=== PATIENT | male | born 1960 | race Caucasian/White ===

== ENCOUNTER 2023-07-10 15:45 | Outpatient (CLI) | payer OTHER, SELFPAY ==
--- NOTE | ~2023-07-10 | XR_ITS ---
XR abdomen/kub 1V 07/10/2023 16:06 Indication: Kidney stones Procedure: KUB Comparison: No prior studies for comparison. Findings: There are peripherally calcified stones in the right upper abdomen at the level of the supe rior pole of the right kidney, suspicious for gallstones. Bowel pattern nonobstructive. Moderate colo manuel fecal loading. Mild osteoarthritis of the hips. No acute osseous abnormality. There are coarse ca lcifications of the prostate gland. No definite renal stones are seen, although the kidneys are obscu red by bowel content. Impression: 1: Probable gallstones. Consider correlation with ultrasound or CT. Reviewed, dictated and finalized at location B. Impression: 1: Probable gallstones. Consider correlation with ultrasound or CT.
== END 2023-07-10 15:46 | disposition home or self-care (01) ==
LOC: ANHIMG 15:51
PROVIDERS: PCP Internal Medicine; Visit Provider Nurse Practitioner Adult Health
DX: N20.0 Calculus of kidney (principal)
CPT/HCPCS: 74018

== ENCOUNTER 2023-07-20 12:31 | Outpatient (CLI) | payer OTHER, SELFPAY ==
--- NOTE | 2023-07-20 12:44 | ECG_ITS ---
Measurements Intervals [place] Rate: 65 P: 43 MI: 155 QRS: 26 QRSD: 77 T: 38 QT: 401 QTc: 419 Interpretive Statements SINUS RHYTHM NO PREVIOUS ECG AVAILABLE FOR COMPARISON Electronically Signed On 07-20-2023 14:33:19 CDT by Brit Jorgensen M.D.
== END 2023-07-20 12:32 | disposition home or self-care (01) ==
PROVIDERS: PCP Internal Medicine; Visit Provider Urology
DX: Z01.810 Encounter for preprocedural cardiovascular examination (principal); I10 Essential (primary) hypertension
CPT/HCPCS: 93005

== ENCOUNTER 2023-07-24 00:29 | Day surgery (SDC) | payer OTHER, SELFPAY ==
[2023-07-20 10:46] VITALS: BMI 40.3
--- NOTE | 2023-07-20 10:59 | PC.NURSE ---
Report to the Outpatient Waiting Room, entrance under the green pavilion located off [facility], at time _0630_ on date _[id number]_. Planned Procedure Time: _0830_. Time changes happen often and if your time is changed the preop area will call you the afternoon before. - You and your visitor will be asked to self-screen and do not enter if you have any COVID symptoms. - A mask is optional within the hospital at this time. Patients may have clear liquids (water, carbonated beverages, clear teas, apple juice) until 3 hours prior to surgery with a maximum of 20 ounces. - No food from midnight until time of surgery Take the following medications with a SIP of water the morning of surgery: __Metoprolol and Venlafaxine DO NOT STOP ANY OF YOUR OTHER PRESCRIPTION MEDICATIONS PRIOR TO SURGERY ?EXCEPT THE FOLLOWING Medications to discontinue per physician _Rybelsus stop now, fish oil and all vitamins Date to take last oxxy___[id number] Please no make-up, nail german, hairspray, perfume, deodorant, or body powder the day of surgery. No jewelry (including any body piercings) or valuables the day of surgery, leave them at home. Please take a shower or bath the night before, or the morning of, surgery with an antibacterial soap. Wear comfortable, loose fitting clothing. - Jewelry must be removed prior to entering the operating room. Rings and piercings that are not removed may be cut off. - The hospital will not accept responsibility for valuables. - Please leave all valuables, including medications, at home the day of surgery. If you are going home after surgery, a licensed sanitation truck driver must drive you home. - NO public transportation without another adult if you receive anesthesia. - We recommend that an adult stay with you for 24 hours following discharge. - We also recommend that you do not drive, make important decision, drink alcoholic beverages, or take any drugs that were not prescribed by your health care provider for at least 24 hours after your discharge time. Follow any additional instructions given to you from your surgeon. If you or anyone in your household have experienced Covid symptoms in the past week, please notify your surgeon or the nurse liaison at the phone number below for possible testing. Telephone instructions given to _Patient__and asked if any additional questions and then verbalized understanding. Patient advised to call surgeon office or pre surgery nurse liaison [phone] if any additional questions.
[2023-07-24] VITALS (14 sets, daily range): BP systolic 115–135; BP diastolic 70–97; PULSE 54–66; RESP 13–20; TEMP 36.3–36.7; O2SAT 97–98
--- NOTE | ~2023-07-24 | XR_ITS ---
EXAMINATION: XR retrograde pyelo w/stent LT DATE: 07/24/2023 08:37 INDICATION: Left ureteral stone. TECHNIQUE: 7 intraoperative fluoroscopic views of the abdomen and pelvis were obtained. I was not pre sent. Fluoroscopy exposure time was 69 seconds. COMPARISON: Abdomen radiograph 07/10/2023 FINDINGS: The left-sided retrograde pyelogram is unremarkable. The final images demonstrate a left in ternal ureteral stent in expected position. IMPRESSION: 1. Left internal ureteral stent in expected position. Reviewed, dictated and finalized at location A.
--- NOTE | 2023-07-24 06:39 | WPDANESEPPF ---
Anes - Initial Pre Proc Eval Procedure: Operation Date: 07/24/23 07:30 Proposed Procedures p Cystoscopy, Left Ureteroscopy, Left Retrograde Pyelogram, Possible Left Stone Extraction, Possible Left Stent Placement, Possible Holmium Laser - Marco Mckeon MD Date/Time: 07/24/23 06:39 Surgeon: Marco Mckeon MD Pre Op Diagnosis: left ureteral stones Patient Data Age: 62 Gender: M Height: 1.85 m Weight: 138.6 kg Allergies Allergy/AdvReac Type Severity Reaction Status Date / Time Gcgudko-YBR-GnS Reductase Allergy Intermediate Muscle Pain Verified 07/24/23 06:31 Inhibitor Home Medications Medication Instructions Recorded Confirmed Type armodafinil 250 mg tablet 125 mg PO DAILY 07/20/23 07/20/23 History cefdinir 300 mg capsule 300 mg PO BID 07/20/23 07/20/23 History cholecalciferol (vitamin D3) 125 125 mcg PO DAILY 07/20/23 07/20/23 History mcg (5,000 unit) tablet (Vitamin D3) gabapentin 300 mg capsule 300 mg PO HS 07/20/23 07/20/23 History glucosamine sulf dipot 1 cap PO DAILY 07/20/23 07/20/23 History chlr,msm,chond 550 mg-C 30 mg-jorge 1 mg capsule (Glucosamine Chondroitin) losartan 50 mg tablet 75 mg PO DAILY 07/20/23 07/20/23 History metoprolol succinate 25 mg 25 mg PO DAILY 07/20/23 07/20/23 History tablet,extended release 24 hr multivitamin 1 tablet PO DAILY 07/20/23 07/20/23 History omega 9-gol-xtn-fish oil 300 1 cap PO DAILY 07/20/23 07/20/23 History mg-1,000 mg capsule (Fish Oil) semaglutide 14 mg tablet (Rybelsus) 14 mg PO DAILY 07/20/23 07/20/23 History tamsulosin 0.4 mg capsule 0.4 mg PO DAILY 07/20/23 07/20/23 History tumeric 100 mg-evette 150 mg-olive 1 cap PO DAILY 07/20/23 07/20/23 History 50 mg-oreg 150 mg-caprylate capsule venlafaxine 225 mg tablet,extended 225 mg PO DAILY 07/20/23 07/20/23 History release 24 hr vit A 7,160 unit-vit C 113 mg-vit 1 tablet PO DAILY 07/20/23 07/20/23 History E 100 dnug-rnez-pvyfxf tablet Patient hx anesthesia problems: 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 [facility] Past Medical History Medical History (Updated 07/24/23 @ 06:40 by Geoff Chandra MD) HTN (hypertension) Hypertension Morbid obesity PAUL (obstructive sleep apnea) Palpitations Social History Social History Smoking status: Never smoker Alcohol intake: current Drinks per week: 1 Living arrangements: with family Spiritual care concerns: No Anes - Eval Final PreProcedure Day of Procedure 07/24/23 06:39 Patient weight: morbidly obese Heart: regular rate and rhythm Lungs: clear to auscultation Airway: Mallampati scale class 1 Neurological: alert and oriented Last oral intake: >/= 8 hours ASA classification: III Emergent: no Anesthetic plan: proceed Anesthesia type and monitoring: general GIVS and standard monitoring Results Review: All pre-operative results and documents have been reviewed as part of the pre-operative evaluation. Informed Consent: The patient's anesthetic plan and its attendant risks and benefits were discussed with the patient/family/POA. Questions were solicited and answers provided to the satisfaction of the patient/family/POA.
[2023-07-24] MEDS: LACTATED RINGERS 1,000 ML 30 ML IV CONT ×2 (07:00→10:21)
--- NOTE | 2023-07-24 07:21 | WPDHPUPDATE1 ---
History and Physical Update Update Date/Time: 07/24/23 07:21 History and Physical has been reviewed, including an updated exam of the patient. There are NO changes in the patient's condition. Risks, benefits, and alternatives have been discussed and questions answered. Patient agrees to proceed with procedure. Proceed with cystoscopy, left retrograde, left urteroscopy with laser, stent placement.
[2023-07-24] MEDS: ceFAZolin 3 GM/D5W 100 ML 100 ML IVPB (07:53)
[2023-07-24] MEDS: LIDOCAINE HCL 2% GEL UROJET 10 ML PKG MUCOUS MEM (08:04)
--- NOTE | 2023-07-24 08:36 | W.PM.PROC2 ---
Procedure Note - Detailed Date of Procedure 07/24/23 Pre-op Diagnosis left ureteral stone 1 cm Post-op Diagnosis Same Procedure Performed Cystoscopy, left retrograde pyelogram, left ureteroscopy with holmium laser, left ureteral stent placement 4.8 Bhutanese contour Surgeon Marco Mckeon MD Anesthesia General Description of Procedure Patient is taken to the operative suite correctly identified. Once anesthesia was obtained he was placed in dorsal lithotomy position and prepped and draped usual sterile fashion. Nineteen Bhutanese scope inserted in the bladder. There were no tumors noted. He does have some lateral lobe hypertrophy. The left ureteral orifice was cannulated with a guidewire. It was a little difficult to manipulated past the stone. We removed ventrally do that. Ureteral access sheath was then placed. Mini flexible ureteral scope was placed. The stone was visualized impacted in the proximal ureter. We used a holmium laser to dust the stone. There were no fragments large enough to retrieve. Ureteral scope then found its way all the way up into the kidney. There was no visual stones noted. Pyelogram was then performed to confirm placement of the stent. 4.8 Bhutanese contour stent was then placed with the proximal end coiled in the renal pelvis and the distal in the bladder. Bladder was drained. 2% viscous lidocaine was inserted urethra patient is taken recovery stable condition. He will follow-up in a week's time for stent removal. This completes dictation. Please send a copy of op note to my office Estimated Blood Loss 0 Drains Yes Packing No Pathology None sent Complications No immediate complications Condition Stable Disposition PACU
[2023-07-24] MEDS: fentaNYL CITRATE INJ (*CRX) 100 MCG/2 ML VIAL 25 MCG IV PUSH ×7 (09:14→10:35)
--- NOTE | 2023-07-24 09:48 | SUR.PHASEII ---
0940 - bleeding from the urethra noted, dr. enriquez aware.
--- NOTE | 2023-07-24 10:01 | SUR.PHASEII ---
0958 - dr. enriquez in room talking with pt and pt's
[2023-07-24] MEDS: HYDROmorphone HCL INJ (*CRX) 1 MG/ML SYR 0.5 MG IV PUSH (10:47)
--- NOTE | 2023-07-24 12:49 | SUR.PHASEII ---
1200 - bladder scanned. 350ml of urine noted. dr. Mckeon aware. 1225 - dr. mckeon in pt's room, inserting catheter 1235 - pt queenie insertion of catheter well. 400 mls of lance urine noted. 1240 - pt to go home with catheter and may remove it tomorrow.
== END 2023-07-24 13:40 | disposition home or self-care (01) ==
PROVIDERS: PCP Internal Medicine; Visit Provider Urology
PROC: (CPT 52352; principal; 2023-07-24 07:30)
DX: N20.1 Calculus of ureter (principal); N40.0 Benign prostatic hyperplasia without lower urinary tract symptoms; G47.33 Obstructive sleep apnea (adult) (pediatric); I10 Essential (primary) hypertension; E66.01 Morbid (severe) obesity due to excess calories; Z68.41 Body mass index [BMI] 40.0-44.9, adult; Z79.85 Long-term (current) use of injectable non-insulin antidiabetic drugs
CPT/HCPCS: 52356; 74420; 93005; C1758; C1769; C1894; C2617; J0690; J1170; J2250; J2704; J3010; J7120; Q9966

== ENCOUNTER 2023-08-30 08:50 | Outpatient (CLI) | payer OTHER, SELFPAY ==
--- NOTE | ~2023-08-30 | XR_ITS ---
Supine and upright views of the abdomen Clinical history: Left ureteral stone, prior lithotripsy COMPARISON: 07/10/2023 Findings: Bowel gas pattern is nonspecific. No evidence for obstruction or free air. Calcified gallst ones again noted in the right upper quadrant. No definite renal stone seen. No definite ureteral ston es seen. Osseous structures are intact. Impression: Cholelithiasis. Reviewed, dictated and finalized at [facility]. 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
== END 2023-08-30 08:51 | disposition home or self-care (01) ==
PROVIDERS: PCP Internal Medicine; Visit Provider Urology
DX: N20.1 Calculus of ureter (principal); K80.20 Calculus of gallbladder without cholecystitis without obstruction
CPT/HCPCS: 74018

== ENCOUNTER 2023-11-14 14:35 | Outpatient (CLI) | payer OTHER, SELFPAY ==
--- NOTE | ~2023-11-14 | MR_ITS ---
MRI of the lumbar spine Clinical History: Radiculopathy Technique: Axial T2-weighted images, and sagittal T1-weighted, T2-weighted, and T2 fat-sat images wer e acquired. Following intravenous administration of 20 cc MultiHance gadolinium, T1-weighted fat-sat imaging was performed in the axial and sagittal planes. Findings: There is no fracture or subluxation of the lumbar spine. Vertebral bodies maintain normal h eight and alignment. No suspicious bone marrow signal abnormality seen. At L1-L2, there is no disc bulge or herniation. No spinal canal stenosis or neural foraminal narrowin g. At L2-L3, there is no significant disc bulge or herniation. There is mild facet joint degenerative ch kimmy. No spinal canal stenosis or neural foraminal narrowing. L3-L4, there is minimal disc bulge with mild facet arthropathy. No central canal stenosis or neural f oraminal narrowing. At L4-L5, there is minimal disc bulge with mild facet arthropathy. No central canal stenosis or neura l foraminal narrowing. At L5-S1, there is minimal disc bulge with mild facet arthropathy. No central canal stenosis or neura l foraminal narrowing. Paravertebral soft tissues are unremarkable. No abnormal postcontrast enhancement identified. Impression: Essentially unremarkable exam. Reviewed, dictated and finalized at [facility]. 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
== END 2023-11-14 14:36 ==
PROVIDERS: PCP Psychiatry & Neurology Neurology; Referring Provider Surgery
DX: M54.16 Radiculopathy, lumbar region (principal)
CPT/HCPCS: 72158; A9577